=== PATIENT | female | born 1945 | race Caucasian/White ===

== ENCOUNTER 2023-01-17 14:32 | Inpatient (IN) | payer MEDICARE, BC ==
[2023-01-17 15:32] LABS: #Monocytes 0.8 10x3/uL (0.0-1.1); #Neutrophils 10.9 10x3/uL (1.5-8.4); %Basophils 0.3 % (0.0-2.0); %Eosinophils 0.2 % (0.0-6.0); %Lymphocytes 10.1 % (18.0-47.0); %Monocytes 6.1 % (0.0-10.0); %Neutrophils 82.8 % (40.0-75.0); Hemoglobin 13.6 g/dL (12.0-15.5); Mean Corpuscular HGB CONC 32.9 g/dL (32.0-36.0); Mean Corpuscular Hemoglobin 28.6 pg (27.0-33.0); Mean Corpuscular Volume 87.2 fl (81.6-98.3); Platelet Count 217 10x3/uL (150-450); RBC Distribution Width 13.2 % (11.5-14.5); Red Blood Cell (RBC) Count 4.75 10x6/uL (3.90-5.03); White Blood Cell (WBC) Count 13.2 10x3/uL (3.5-10.5)
[2023-01-17 15:48] LABS: ALT (SGPT) 30 U/L (8-55); AST (SGOT) 19 U/L (5-34); Albumin 3.9 g/dL (3.4-4.8); Alkaline Phosphatase 97 U/L (40-110); Anion Gap 16 mmol/L (10-20); BUN (Urea Nitrogen) 31 mg/dL (9.8-20.1); Bilirubin, Total 0.8 mg/dL (0.2-1.2); Calc. Creatinine Clearance 0 mL/min (70-130); Calcium 10.1 mg/dL (7.8-10.44); Carbon Dioxide 26 mmol/L (23-31); Chloride 98 mmol/L (98-107); Estimated GFR 32; Globulin 3.3 g/dL (2.4-3.5); Glucose 114 mg/dL (83-110); Potassium 4.3 mmol/L (3.5-5.1); Protein, Total 7.2 g/dL (5.8-8.1); Sodium 136 mmol/L (136-145)
[2023-01-17 16:53] LABS: Bilirubin Neg (Negative); Blood, Urine 25 (Negative); Clarity Cloudy (Clear); Glucose, Urine (Dipstick) Normal (Negative); Ketone, Urine Negative (Negative); Leukocyte 500 (Negative); Nitrite Negative (Negative); Protein, Urine (Dipstick) 30 mg/dl (Neg-Trace); Specific Gravity, Urine 1.015 (1.005-1.030); Urobilinogen Normal mg/dL (Less than 2)
[2023-01-17 17:06] LABS: RBC/HPF 0-3 HPF (0-3); Squamous Epithelial 0-3 HPF (0-3); WBC/HPF Greater Than 50 HPF (0-3)
[2023-01-17 17:07] LABS: Bacteria/HPF 3+ HPF (None Seen); Renal Epithelial 0-3 HPF (None Seen)
[2023-01-17] MEDS ORDERED: cefTRIAXone (ROCEPHIN) 2 GM VIAL ONE (17:09)
[2023-01-17] MEDS ORDERED: Calcium Carbonate 500 MG ChewTAB PO PRN (19:18)
[2023-01-17] MEDS ORDERED: Ondansetron PF 4 MG/2 ML Vial IVP PRN (19:18)
[2023-01-17 21:27] LABS: Lactic Acid 3.3 mmol/L (0.5-2.2)
[2023-01-17 22:33] VITALS: BMI 28.6
[2023-01-17] MEDS ORDERED: Atorvastatin Calcium 20 MG TAB PO SCH (22:45)
[2023-01-17] MEDS ORDERED: Gabapentin 300 MG CAP PO SCH (22:45)
[2023-01-17] MEDS ORDERED: Lactated Ringer's 1,000 ML IV SCH (23:00)
[2023-01-17] MEDS: Lorazepam 0.5 MG TAB PO PRN (23:02)
[2023-01-17] MEDS: Acetaminophen 325 MG TAB PO PRN (23:02)
[2023-01-17] MEDS: Guaifenesin DM 100-10/5 ML UDCUP PO PRN (23:04)
[2023-01-18] MEDS: Levothyroxine Sodium 50 MCG TAB PO SCH (05:30)
[2023-01-18 05:52] LABS: #Eosinphils 0.1 10x3/uL (0.0-0.5); #Monocytes 0.7 10x3/uL (0.0-1.1); #Neutrophils 6.9 10x3/uL (1.5-8.4); %Basophils 0.3 % (0.0-2.0); %Eosinophils 0.7 % (0.0-6.0); %Lymphocytes 14.4 % (18.0-47.0); %Monocytes 7.6 % (0.0-10.0); %Neutrophils 76.4 % (40.0-75.0); Hemoglobin 11.3 g/dL (12.0-15.5); Mean Corpuscular HGB CONC 32.6 g/dL (32.0-36.0); Mean Corpuscular Hemoglobin 28.3 pg (27.0-33.0); Mean Platelet Volume 11.4 fl (7.4-10.4); Platelet Count 180 10x3/uL (150-450); RBC Distribution Width 13.2 % (11.5-14.5); Red Blood Cell (RBC) Count 3.99 10x6/uL (3.90-5.03)
[2023-01-18 06:17] LABS: Anion Gap 13 mmol/L (10-20); BUN (Urea Nitrogen) 26 mg/dL (9.8-20.1); Calc. Creatinine Clearance 51 mL/min (70-130); Calcium 9.2 mg/dL (7.8-10.44); Carbon Dioxide 26 mmol/L (23-31); Chloride 102 mmol/L (98-107); Estimated GFR 47; Glucose 128 mg/dL (83-110); Potassium 4.6 mmol/L (3.5-5.1); Sodium 136 mmol/L (136-145)
[2023-01-18] MEDS ORDERED: Ipratropium/Albuterol 3 ML NEB NEB STA (08:39)
[2023-01-18] MEDS: Ezetimibe 10 MG TAB PO SCH (08:43)
[2023-01-18] MEDS: Gabapentin 300 MG CAP PO SCH ×2 (08:44→20:38)
[2023-01-18] MEDS: Ipratropium/Albuterol 3 ML NEB NEB SCH ×2 (11:09→15:40)
[2023-01-18] MEDS: Sodium Chloride 0.9% 1,000 ML IV SCH ×2 (11:26→22:07)
[2023-01-18] MEDS: Doxycycline 100 MG in Sodium Chloride 0.9% 100 ML IVPB SCH ×2 (11:27→20:36)
[2023-01-18] MEDS: guaiFENesin ER 600 MG TAB PO SCH ×2 (11:34→20:38)
[2023-01-18] MEDS ORDERED: Sodium Chloride 0.9% 100 ML ONE (16:41)
[2023-01-18] MEDS: cefTRIAXone\\ROCEPHIN 2 GM in Sodium Chloride 0.9% 100 ML IVPB SCH (16:53)
[2023-01-18] MEDS: Acetaminophen 325 MG TAB PO PRN (17:03)
[2023-01-18] MEDS: Atorvastatin Calcium 20 MG TAB PO SCH (20:38)
[2023-01-18] MEDS: Lorazepam 0.5 MG TAB PO PRN (22:06)
[2023-01-18] MEDS ORDERED: Gabapentin 300 MG CAP PO SCH (23:30)
[2023-01-19] MEDS: Levothyroxine Sodium 50 MCG TAB PO SCH (05:32)
[2023-01-19] MEDS: HYDROcodone/Acetaminophen 5/325 mg Tablet PO PRN ×2 (05:35→22:17)
[2023-01-19] MEDS: Guaifenesin DM 100-10/5 ML UDCUP PO PRN (05:37)
[2023-01-19 06:18] LABS: #Eosinphils 0.1 10x3/uL (0.0-0.5); #Monocytes 0.8 10x3/uL (0.0-1.1); #Neutrophils 6.2 10x3/uL (1.5-8.4); %Basophils 0.5 % (0.0-2.0); %Eosinophils 1.2 % (0.0-6.0); %Lymphocytes 13.3 % (18.0-47.0); %Monocytes 9.2 % (0.0-10.0); %Neutrophils 75.3 % (40.0-75.0); Hemoglobin 10.6 g/dL (12.0-15.5); Mean Corpuscular HGB CONC 33.4 g/dL (32.0-36.0); Mean Corpuscular Hemoglobin 28.4 pg (27.0-33.0); Platelet Count 186 10x3/uL (150-450); RBC Distribution Width 13.3 % (11.5-14.5); Red Blood Cell (RBC) Count 3.73 10x6/uL (3.90-5.03); White Blood Cell (WBC) Count 8.3 10x3/uL (3.5-10.5)
[2023-01-19 06:26] LABS: Anion Gap 12 mmol/L (10-20); BUN (Urea Nitrogen) 18 mg/dL (9.8-20.1); Calc. Creatinine Clearance 70 mL/min (70-130); Calcium 8.8 mg/dL (7.8-10.44); Carbon Dioxide 21 mmol/L (23-31); Chloride 108 mmol/L (98-107); Estimated GFR 68; Glucose 112 mg/dL (83-110); Magnesium 1.7 mg/dL (1.6-2.6); Phosphorus 2.5 mg/dL (2.3-4.7); Potassium 4.3 mmol/L (3.5-5.1); Sodium 137 mmol/L (136-145)
[2023-01-19] MEDS: Ipratropium/Albuterol 3 ML NEB NEB SCH ×5 (06:48→19:55)
[2023-01-19] MEDS: Sodium Chloride 0.9% 1,000 ML IV SCH ×2 (07:55→10:32)
[2023-01-19] MEDS: Doxycycline 100 MG in Sodium Chloride 0.9% 100 ML IVPB SCH ×2 (10:30→22:06)
[2023-01-19] MEDS: guaiFENesin ER 600 MG TAB PO SCH ×2 (10:35→22:08)
[2023-01-19] MEDS: Gabapentin 300 MG CAP PO SCH ×2 (10:35→22:07)
[2023-01-19] MEDS: Ezetimibe 10 MG TAB PO SCH (10:35)
[2023-01-19] MEDS ORDERED: Iopamidol 300 61% 100 ML VIAL FS ONE (10:45)
[2023-01-19] MEDS: Lorazepam 0.5 MG TAB PO PRN (11:06)
[2023-01-19] MEDS: cefTRIAXone\\ROCEPHIN 2 GM in Sodium Chloride 0.9% 100 ML IVPB SCH (16:40)
[2023-01-19] MEDS: Atorvastatin Calcium 20 MG TAB PO SCH (22:08)
[2023-01-20] MEDS: Sodium Chloride 0.9% 1,000 ML IV SCH ×2 (02:17→05:36)
[2023-01-20] MEDS: Guaifenesin DM 100-10/5 ML UDCUP PO PRN (04:23)
[2023-01-20] MEDS: Ipratropium/Albuterol 3 ML NEB NEB SCH ×4 (04:30→20:40)
[2023-01-20 05:26] LABS: #Eosinphils 0.2 10x3/uL (0.0-0.5); #Monocytes 0.6 10x3/uL (0.0-1.1); #Neutrophils 4.4 10x3/uL (1.5-8.4); %Basophils 0.5 % (0.0-2.0); %Eosinophils 2.4 % (0.0-6.0); %Monocytes 9.7 % (0.0-10.0); %Neutrophils 65.8 % (40.0-75.0); Hemoglobin 10.2 g/dL (12.0-15.5); Mean Corpuscular HGB CONC 32.8 g/dL (32.0-36.0); Mean Corpuscular Hemoglobin 28.3 pg (27.0-33.0); Mean Corpuscular Volume 86.1 fl (81.6-98.3); Mean Platelet Volume 11.1 fl (7.4-10.4); Platelet Count 213 10x3/uL (150-450); RBC Distribution Width 13.7 % (11.5-14.5); Red Blood Cell (RBC) Count 3.61 10x6/uL (3.90-5.03); White Blood Cell (WBC) Count 6.6 10x3/uL (3.5-10.5)
[2023-01-20] MEDS: Levothyroxine Sodium 50 MCG TAB PO SCH (05:33)
[2023-01-20 05:38] LABS: Anion Gap 12 mmol/L (10-20); BUN (Urea Nitrogen) 15 mg/dL (9.8-20.1); Calc. Creatinine Clearance 68 mL/min (70-130); Calcium 9.1 mg/dL (7.8-10.44); Carbon Dioxide 24 mmol/L (23-31); Chloride 107 mmol/L (98-107); Estimated GFR 65; Glucose 92 mg/dL (83-110); Potassium 4.6 mmol/L (3.5-5.1); Sodium 138 mmol/L (136-145)
[2023-01-20] MEDS ORDERED: Insulin Regular 300 UNITS/3 ML VIAL SC PRN (09:36)
[2023-01-20] MEDS ORDERED: Dextrose 5% in Water 1,000 ML IV PRN (09:36)
[2023-01-20] MEDS ORDERED: Dextrose 50% Abboject 50 ML SYRINGE SLOW IVP PRN (09:36)
[2023-01-20] MEDS: Ezetimibe 10 MG TAB PO SCH (09:44)
[2023-01-20] MEDS: Doxycycline 100 MG in Sodium Chloride 0.9% 100 ML IVPB SCH ×2 (09:44→20:49)
[2023-01-20] MEDS: Gabapentin 300 MG CAP PO SCH ×2 (09:45→20:50)
[2023-01-20] MEDS: guaiFENesin ER 600 MG TAB PO SCH ×2 (09:45→20:51)
[2023-01-20] MEDS: methylPREDNISolone Sod Succ 40 MG VIAL IVP SCH ×3 (11:36→23:29)
[2023-01-20] MEDS: cefTRIAXone\\ROCEPHIN 2 GM in Sodium Chloride 0.9% 100 ML IVPB SCH (16:26)
[2023-01-20] MEDS: Insulin Regular 300 UNITS/3 ML VIAL SC PRN (18:22)
[2023-01-20] MEDS: Atorvastatin Calcium 20 MG TAB PO SCH (20:49)
[2023-01-20] MEDS: Polyethylene Glycol 3350 17 GM Packet PO SCH (20:52)
[2023-01-21] MEDS: Guaifenesin DM 100-10/5 ML UDCUP PO PRN (02:43)
[2023-01-21 05:33] LABS: #Monocytes 0.2 10x3/uL (0.0-1.1); %Basophils 0.2 % (0.0-2.0); %Lymphocytes 15.3 % (18.0-47.0); %Monocytes 2.7 % (0.0-10.0); Hemoglobin 10.9 g/dL (12.0-15.5); Mean Corpuscular HGB CONC 32.8 g/dL (32.0-36.0); Mean Corpuscular Hemoglobin 27.6 pg (27.0-33.0); Mean Corpuscular Volume 84.1 fl (81.6-98.3); Mean Platelet Volume 10.4 fl (7.4-10.4); Platelet Count 274 10x3/uL (150-450); RBC Distribution Width 13.6 % (11.5-14.5); Red Blood Cell (RBC) Count 3.95 10x6/uL (3.90-5.03); White Blood Cell (WBC) Count 6.3 10x3/uL (3.5-10.5)
[2023-01-21] MEDS: methylPREDNISolone Sod Succ 40 MG VIAL IVP SCH (05:33)
[2023-01-21] MEDS: Levothyroxine Sodium 50 MCG TAB PO SCH (05:33)
[2023-01-21 05:39] LABS: Anion Gap 13 mmol/L (10-20); BUN (Urea Nitrogen) 16 mg/dL (9.8-20.1); Calc. Creatinine Clearance 83 mL/min (70-130); Calcium 9.8 mg/dL (7.8-10.44); Carbon Dioxide 22 mmol/L (23-31); Chloride 108 mmol/L (98-107); Estimated GFR 83; Glucose 166 mg/dL (83-110); Potassium 4.5 mmol/L (3.5-5.1); Sodium 138 mmol/L (136-145)
[2023-01-21] MEDS: Insulin Regular 300 UNITS/3 ML VIAL SC PRN (05:51)
[2023-01-21] MEDS: Ipratropium/Albuterol 3 ML NEB NEB SCH ×3 (08:28→16:41)
[2023-01-21] MEDS ORDERED: Lisinopril 10 MG TAB PO SCH (09:00)
[2023-01-21] MEDS ORDERED: Furosemide 40 MG TAB PO SCH (09:00)
[2023-01-21] MEDS: Gabapentin 300 MG CAP PO SCH (09:31)
[2023-01-21] MEDS: Ezetimibe 10 MG TAB PO SCH (09:32)
[2023-01-21] MEDS: guaiFENesin ER 600 MG TAB PO SCH (09:33)
[2023-01-21] MEDS: Doxycycline 100 MG in Sodium Chloride 0.9% 100 ML IVPB SCH (09:33)
[2023-01-21] MEDS: Polyethylene Glycol 3350 17 GM Packet PO SCH (09:34)
[2023-01-21] MEDS ORDERED: hydrALAZINE 20 MG/ML VIAL SLOW IVP SCH ×2 (10:30→10:45)
[2023-01-21 14:48] VITALS: BP 161/68; TEMP 97.2
[2023-01-22] MEDS ORDERED: predniSONE 50 MG TAB PO SCH (08:00)
[2023-01-22] MEDS ORDERED: Furosemide 20 MG TAB PO SCH (09:00)
[2023-01-22] MEDS ORDERED: Furosemide 40 MG TAB PO SCH (09:00)
== END 2023-01-21 15:30 | disposition home or self-care (01) | DRG 871 ==
LOC: CSHERS 14:32 → CSHTELE 22:08
PROVIDERS: ADMIT Student in an Organized Health Care Education/Training Program; ATTEND Internal Medicine
DX: A41.9 Sepsis, unspecified organism (principal); J18.9 Pneumonia, unspecified organism; N39.0 Urinary tract infection, site not specified; N17.9 Acute kidney failure, unspecified; C84.00 Mycosis fungoides, unspecified site; E87.21 Acute metabolic acidosis; E03.9 Hypothyroidism, unspecified; I10 Essential (primary) hypertension; E78.5 Hyperlipidemia, unspecified; R65.20 Severe sepsis without septic shock; G47.00 Insomnia, unspecified; E86.0 Dehydration; Z20.822 Contact with and (suspected) exposure to COVID-19; F41.9 Anxiety disorder, unspecified; Z82.49 Family history of ischemic heart disease and other diseases of the circulatory system; Z90.710 Acquired absence of both cervix and uterus; Z79.890 Hormone replacement therapy; Z79.899 Other long term (current) drug therapy
CPT/HCPCS: 36415; 36416; 71045; 74177; 76770; 80048; 80053; 81003; 81015; 83605; 83735; 84100; 84145; 84443; 85025; 87040; 87077; 87086; 87149; 87186; 93005; 93010; 94640; 94760; 96365; 96366; J0360; J0696; J1650; J1815; J2920; J3490; J7050; J7120; J7620; Q9967; U0003; U0005